=== PATIENT | male | born 1990 | race Two or more races ===

== ENCOUNTER 2017-06-21 07:53 | Inpatient (IN) | payer OTHER ==
[~2017-06-21] VITALS: Ht 177.8 cm; Wt 55.7 kg
[2017-06-21] MEDS ORDERED: SODIUM CHLORIDE 0.9% 1,000ML IVBOLUS ONE ×2 (08:30→15:00)
[2017-06-21] MEDS ORDERED: FAMOTIDINE 20 MG/2 ML IVP ONE (08:30)
[2017-06-21] MEDS ORDERED: ONDANSETRON 2MG/ML, 2ML IVPush ONE ×2 (08:30→11:00)
[2017-06-21] MEDS ORDERED: SODIUM CHLORIDE FLUSH 10ML SYR IVF ONE (08:30)
[2017-06-21] MEDS ORDERED: ONDANSETRON 2MG/ML, 2ML ONE ×2 (08:41→10:51)
[2017-06-21] MEDS ORDERED: FAMOTIDINE 20 MG/2 ML ONE (08:41)
[2017-06-21 08:44] LABS: HEMATOCRIT 61.1 % (39.2-51.8); HEMOGLOBIN 20.8 g/dL (13.7-18.0); WHITE BLOOD COUNT 29.7 x10^3/uL (3.4-10)
[2017-06-21 08:52] LABS: ASPARTATE AMINO TRANSFERASE 21 U/L (15-37); BLOOD UREA NITROGEN 25 mg/dL (7-18)
[2017-06-21 09:44] LABS: DIFF TOTAL CELLS COUNTED 100 CELL DIFF
[2017-06-21 09:46] LABS: VERIFY COUNTS? YES
[2017-06-21 09:50] LABS: LARGE PLATELETS 1+
[2017-06-21] MEDS ORDERED: CEFTRIAXONE PMX 1GM/50ML 50 ML ONE (10:37)
[2017-06-21] MEDS ORDERED: CEFTRIAXONE PMX 1GM/50ML 50 ML IVPB ONE (11:00)
[2017-06-21] MEDS ORDERED: SODIUM CHLORIDE 0.9% 1,000 ML IV ONE (12:51)
[2017-06-21] MEDS ORDERED: SODIUM CHLORIDE FLUSH 10ML SYR IVF PRN (13:00)
[2017-06-21] MEDS ORDERED: D5%-0.45% NACL 1,000 ML IV SCH (14:34)
[2017-06-21] MEDS ORDERED: ONDANSETRON 2MG/ML, 2ML IVPush PRN (15:00)
[2017-06-21] MEDS ORDERED: LABETALOL 5MG/ML, 20ML IVPush PRN (15:00)
[2017-06-21] MEDS ORDERED: POLYETHYLENE GLYCOL 17 GM PACKET PO PRN (15:00)
[2017-06-21] MEDS ORDERED: ONDANSETRON ODT 4 MG PO PRN (15:00)
[2017-06-21] MEDS ORDERED: HYDROcodone/APAP 5/325 TABLET PO PRN (15:00)
[2017-06-21] MEDS: HEPARIN 5,000 UNITS/ML, 1ML SQ SCH ×2 (15:00→23:39)
[2017-06-21] MEDS ORDERED: METRONIDAZOLE PMX 500MG/100ML 100 ML IV SCH (15:00)
[2017-06-21] MEDS ORDERED: SODIUM CHLORIDE 0.9% 1,000 ML IV SCH (16:30)
[2017-06-21] MEDS ORDERED: FLU VACC QS2017-18 (36MOS+) UP/PF 0.5 ML IM-VACC ONE (17:30)
[2017-06-21 19:33] VITALS: BP 97/52
[2017-06-21 19:57] LABS: HEMATOCRIT 44.3 % (39.2-51.8); HEMOGLOBIN 15.1 g/dL (13.7-18.0); WHITE BLOOD COUNT 13.5 x10^3/uL (3.4-10)
[2017-06-21 20:08] LABS: BLOOD UREA NITROGEN 14 mg/dL (7-18)
[2017-06-21 20:12] LABS: ASPARTATE AMINO TRANSFERASE 13 U/L (15-37)
[2017-06-21] MEDS: SODIUM CHLORIDE 0.9% 1,000 ML IV SCH (23:39)
[2017-06-22 00:49] VITALS: BP 95/49
[2017-06-22] MEDS: HEPARIN 5,000 UNITS/ML, 1ML SQ SCH ×2 (07:00→14:28)
[2017-06-22] MEDS: SODIUM CHLORIDE 0.9% 1,000 ML IV SCH (07:53)
[2017-06-22 07:54] VITALS: BP 104/55
[2017-06-22 08:45] LABS: HEMATOCRIT 43.2 % (39.2-51.8); HEMOGLOBIN 14.6 g/dL (13.7-18.0); WHITE BLOOD COUNT 10.4 x10^3/uL (3.4-10)
[2017-06-22 08:47] LABS: ASPARTATE AMINO TRANSFERASE 16 U/L (15-37); BLOOD UREA NITROGEN 11 mg/dL (7-18)
[2017-06-22] MEDS ORDERED: SENNA/DOCUSATE TABLET PO SCH (09:00)
[2017-06-22 13:36] VITALS: BP 124/86
[2017-06-22] MEDS ORDERED: SODIUM CHLORIDE 0.45% 1,000 ML IV SCH (16:00)
[2017-06-22] MEDS ORDERED: SODIUM CHLORIDE 0.9% 1,000 ML IV SCH (16:30)
== END 2017-06-22 18:25 | disposition home or self-care (01) | DRG 683 ==
LOC: ED 09:40 → EDIP 12:51 → 3NE 13:54
PROVIDERS: ADMIT Hospitalist; ATTEND Hospitalist
DX: N17.0 Acute kidney failure with tubular necrosis (principal); E87.2 Acidosis; D75.1 Secondary polycythemia; E83.52 Hypercalcemia; R17 Unspecified jaundice; E86.0 Dehydration; Z80.0 Family history of malignant neoplasm of digestive organs; Z83.3 Family history of diabetes mellitus; D72.829 Elevated white blood cell count, unspecified; R19.7 Diarrhea, unspecified; R11.2 Nausea with vomiting, unspecified; R73.9 Hyperglycemia, unspecified
CPT/HCPCS: 36415; 74176; 76700; 80053; 81001; 82570; 83605; 83690; 84300; 85025; 87040; 87086; 87324; 89055; 90686; 96361; 96365; 96375; J0696; J2405; J7030; S0028

== ENCOUNTER 2017-09-04 10:00 | Emergency (ER) | payer OTHER ==
[~2017-09-04] VITALS: Ht 177.8 cm; Wt 58.6 kg
[2017-09-04] MEDS ORDERED: SODIUM CHLORIDE 0.9% 1,000ML IVBOLUS ONE (13:30)
[2017-09-04] MEDS ORDERED: SODIUM CHLORIDE FLUSH 10ML SYR IVF ONE (13:30)
[2017-09-04 13:40] LABS: BASOPHILS # (AUTO) 0.03 x10^3/uL (0-0.1); BASOPHILS % (AUTO) 0 % (0-1); EOSINOPHILS % (AUTO) 0 % (1-7); LYMPHOCYTES # (AUTO) 1.24 x10^3/uL (1-3.4); LYMPHOCYTES % (AUTO) 10 % (22-44); MD NO; MEAN CORPUSCULAR HEMOGLOBIN 29.9 pg (27.5-34.5); MEAN CORPUSCULAR HGB CONC 33.8 g/dL (33.2-36.2); MEAN CORPUSCULAR VOLUME 88.5 fL (81-97); MONOCYTES % (AUTO) 3 % (2-9); NEUTROPHILS # (AUTO) 10.84 x10^3/uL (1.8-6.8); NEUTROPHILS % (AUTO) 87 % (42-75); PLATELET COUNT 223 x10^3/uL (130-400); RED BLOOD COUNT 6.02 x10^6/uL (4.38-5.82); RED CELL DISTRIBUTION WIDTH 12.8 % (9.4-14.8)
[2017-09-04 13:53] LABS: ALBUMIN 5.4 g/dL (3.4-5.0); ANION GAP 12 mmol/L (5-15); CALCIUM 9.8 mg/dL (8.5-10.1); CHLORIDE 107 mmol/L (98-107)
[2017-09-04 13:56] LABS: ALANINE AMINOTRANSFERASE 74 U/L (12-78); ALKALINE PHOSPHATASE 78 U/L (45-117); BILIRUBIN,TOTAL 1.4 mg/dL (0.2-1.0); CREATININE 0.89 mg/dL (0.7-1.3); TOTAL PROTEIN 8.9 g/dL (6.4-8.2)
[2017-09-04 14:38] LABS: MICROSCOPIC NOT IND
[2017-09-04 14:41] LABS: CULTURE INDICATED? NO
[2017-09-04 16:52] VITALS: BP 120/78
== END 2017-09-04 17:00 ==
LOC: ED 16:54
DX: R55 Syncope and collapse (principal); Z88.0 Allergy status to penicillin
CPT/HCPCS: 36415; 73630; 80053; 81003; 82962; 85025; 93005; 93880; 96360; 99285; J7030